=== PATIENT | female | born 1980 | race Caucasian/White ===

== ENCOUNTER 2021-11-25 20:18 | Observation (INO) | payer OTHER ==
[2021-11-25 20:52] LABS: Basophil (Absolute #) 0.02 (0-0.4); Eosinophil % 0.7 % (0.00-5.0); Hematocrit 47.7 % (35-47); Hemoglobin 15.7 gm/dl (12.0-16.0); Lymphocyte (Absolute #) 3.54 (1.0-4.6); Lymphocytes % 25.3 % (24.0-44.0); Mean Cell Volume 85.3 fl (78-100); Mean Corpuscular Hemoglobin 28.1 pg (26-32); Mean Corpuscular Hgb Concent. 32.9 g/dl (32-36); Mean Platelet Volume 10.3 fl (7.5-11.0); Monocyte (Absolute #) 0.93 (0.0-1.3); Monocytes % 6.6 % (0.0-12.0); Neutrophil % 67.3 % (36.0-66.0); Platelet Count 406 K/mm3 (150-450); Red Blood Count 5.59 M/mm3 (4.1-5.4); Red Cell Distribution Width 14.6 % (11.5-14.0)
[2021-11-25 21:11] LABS: ALBUMIN 4.6 g/dL (3.5-5.0); ALKALINE PHOSPHATASE 108 U/L (38-126); ANION GAP 15.2 MEQ/L (5-15); BLOOD UREA NITROGEN 12 mg/dL (7-17); CHLORIDE 98 mmol/L (98-107); CK-Creatinine Phosphokinase < 20 U/L (30-135); Calcium 9.5 mg/dL (8.4-10.2); Carbon Dioxide 29 mmol/L (22-30); Creatinine 1 0.79 mg/dL (0.52-1.04); EST GLOMERULAR FILTRATION RATE > 60.0 ML/MIN; Glucose 175 mg/dL (74-106); NT PRO BNP 48.1 pg/mL (0-450); SGOT/AST 30 U/L (14-36); SGPT/ALT 41 U/L (0-35); SODIUM 138 mmol/L (137-145); Total Protein 8.6 g/dL (6.3-8.2)
[2021-11-25 21:24] LABS: Appearance CLEAR (CLEAR)
[2021-11-25 21:26] LABS: Bilirubin NEGATIVE (NEGATIVE); Dipstick done @ ? MAIN LAB; Glucose NEGATIVE (NEGATIVE); Ketones NEGATIVE (NEGATIVE); Nitrite NEGATIVE (NEGATIVE); Protein,Urine Dip NEGATIVE (Negative); RBC NEGATIVE Ery/ul (0-5); Specific Gravity 1.015 (1.005-1.025); Urobilinogen 0.2 mg/dL (0-1)
[2021-11-25 21:31] LABS: Epithelial Cells RARE /HPF (FEW); Mucus SLIGHT /HPF (NEGATIVE)
[2021-11-25 21:32] LABS: Urine Cultured Indicated? YES
[2021-11-25 21:41] LABS: Amphetamine,Urine NEGATIVE (NEGATIVE); Barbiturate,Urine NEGATIVE (NEGATIVE); Benzodiazepine,Urine NEGATIVE (NEGATIVE); Cocaine,Urine NEGATIVE (NEGATIVE); Methadone,Urine NEGATIVE (NEGATIVE); Opiate,Urine NEGATIVE (NEGATIVE); PCP,Urine NEGATIVE (NEGATIVE); THC,Urine NEGATIVE (NEGATIVE)
--- NOTE | 2021-11-25 22:46 | ERPHSYRPT ---
- History of Present Illness Time Seen by Provider: 11/25/21 20:28 Source: patient, family Exam Limitations: no limitations Patient Subjective Stated Complaint: Patient states that she has been feeling "not right" all day today. She went to the [facility] today and states that the INVENTORY AUDITOR there indicated to her that she what she was expriencing was normal following her recent stroke. Patient states she had a stroke 2 weeks ago. She denies any pain at this time. States, "I feel tired and no myself. I get weak easily." Denies SOB or N/V. Triage Nursing Assessment: Patient ambulated back to ED with slow gait walking arm-in-arm with her . No SOB noted. She is alert and oriented and answering questions appopriately. B/P is elevated. Patient indicates she has not started a few of her new cardiac medications that Dr. Tejada prescribed the other day yet. Education provided to patient about the importance of taking medications as prescribed by her welder tack. Sinus Rythm noted on yard driver. Physician History: 41 years old female with history of hypertension, hyperlipidemia, diabetes mellitus, recent stroke 2 weeks ago with left-sided residual weakness in upper and lower extremity needing cane for ambulation, noncompliant with medications presented in the ER not feeling herself since morning. Patient reports "I feel off". Denies any chest pain palpitations or shortness of breath but weak all over. Denies any new/worsening weakness on the left side. No difficulty speech or visual symptoms. Patient has a blood pressure 200/116 on presentation without any headache, dizziness or lightheadedness. Timing/Duration: today, constant Severity: moderate Character of Deficits: general (difuse) Deficits: no difficulties Baseline/Normal Cognition: alert oriented x 3 Current Cognition: alert oriented x 3 Baseline Gait: uses cane Associated Symptoms: fatigue Allergies/Adverse Reactions: ciprofloxacin [From Cipro] Allergy (Mild, Verified 11/25/21 20:25) ciprofloxacin HCl [From Cipro] Allergy (Mild, Verified 11/25/21 20:25) duloxetine HCl [From Cymbalta] Allergy (Mild, Verified 11/25/21 20:25) topiramate [From Topamax] Allergy (Mild, Verified 11/25/21 20:25) aripiprazole [From Abilify] Allergy (Verified 11/25/21 20:25) sulfamethoxazole [From Bactrim] Allergy (Verified 11/25/21 23:01) trimethoprim [From Bactrim] Allergy (Verified 11/25/21 23:01) cephalexin monohydrate [From Keflex] Adverse Reaction (Verified 11/25/21 22:54) Home Medications: Aspirin 81 gm Chew [Baby Aspirin 81 mg Chew] 1 tab PO DAILY 11/25/21 [History] Atorvastatin Calcium 80 mg PO HS 11/25/21 [History] Clopidogrel Bisulfate 75 mg [PLAVIX 75 MG Tablet] 1 tab PO DAILY 11/25/21 [History] Famotidine 20 mg [Pepcid 20 MG] 1 tab PO BID 11/25/21 [History] Fluoxetine HCl 10 mg [Prozac 10 mg] 1 cap PO DAILY 11/25/21 [History] Losartan Potassium 50 mg [Cozaar 50 MG] 1 tab PO BID 11/25/21 [History] Omeprazole 40 mg PO DAILY 11/25/21 [History] dilTIAZem HCL [Diltiazem 24Hr ER (Xr)] 120 mg PO DAILY 11/25/21 [History] hydroCHLOROthiazide [Hydrochlorothiazide] 12.5 mg PO DAILY 11/25/21 [History] Hx Tetanus, Diphtheria Vaccination/Date Given: Yes Hx Influenza Vaccination/Date Given: No Hx Pneumococcal Vaccination/Date Given: No Immunizations Up to Date: Yes Travel Risk - International Travel Have you traveled outside of the country in past 3 weeks: No - Coronavirus Screening Are you exhibiting any of the following symptoms?: No Close contact with a COVID-19 positive Pt in past 14-21 Days: No - Vaccine Status Have you recieved a Covid-19 vaccination: No - Review of Systems Constitutional: Fatigue, Weakness Eyes: No Symptoms Ears, Nose, & Throat: No Symptoms Respiratory: No Symptoms Cardiac: No Symptoms Abdominal/Gastrointestinal: No Symptoms Genitourinary Symptoms: No Symptoms Musculoskeletal: No Symptoms Skin: No Symptoms Neurological: Other Psychological: Anxiety Endocrine: No Symptoms Hematologic/Lymphatic: No Symptoms Immunological/Allergic: No Symptoms - Past Medical History Pertinent Past Medical History: Yes Neurological History: Migraines, Stroke ENT History: No Pertinent History Cardiac History: Other Respiratory History: Asthma Endocrine Medical History: Diabetes Type II Musculoskeletal History: No Pertinent History GI Medical History: GERD History: No Pertinent History Psycho-Social History: Anxiety, Depression Female Reproductive Disorders: No Pertinent History Other Medical History: PATIENT STATES 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 STATES HAS SEEN A DOCTOR FOR KNEE AND BACK ISSUES BUT NO SURGERY. Stroke on 11/10/21 - Past Surgical History Past Surgical History: Yes Gastrointestinal: Cholecystectomy Genitourinary: Other Female Surgical History: Tubal Ligation Other Surgical History: KIDNEY STONE, Cyst removed from left ovary - Social History Smoking Status: Never smoker Exposure to second hand smoke: No Drug Use: none Patient Lives Alone: No - Female History Hx Last Menstrual Period: Spotted last month Hx Now: (unkn) - Nursing Vital Signs Nursing Vital Signs: Initial Vital Signs Temperature 98.5 F 11/25/21 20:30 Pulse Rate 97 H 11/25/21 20:30 Respiratory Rate 24 11/25/21 20:30 Blood Pressure 200/116 11/25/21 20:30 O2 Sat by Pulse Oximetry 98 11/25/21 20:30 Pain Scale Pain Intensity 0 - [place] Coma Scale Best Eye Response ([place]): (4) open spontaneously Best Verbal Response ([place]): (5) oriented Best Motor Response ([place]): (6) obeys commands [place] Total: 15 - Physical Exam General Appearance: no apparent distress, alert, anxiety Eye Exam: bilateral eye: normal inspection, PERRL, EOMI Ears, Nose, Throat Exam: normal ENT inspection, TMs normal, pharynx normal, moist mucous membranes Neck Exam: normal inspection, non-tender, full range of motion Respiratory: normal breath sounds, lungs clear Cardiovascular: regular rate/rhythm, normal heart sounds Gastrointestinal: soft, No tenderness Back Exam: normal inspection, normal range of motion Extremity Exam: normal inspection, normal range of motion Mental Status: alert, oriented x 3, cooperative oracle distribution consultant Exam: normal hearing, normal speech, PERRL Coordination/Gait: No normal finger to nose, No normal gait Motor/Sensory: weak motor strength LUE, weak motor strength LLE DTR: bicep (R): 2+, bicep (L): 2+, knee (R): 2+, knee (L): 2+ Skin Exam: normal color SpO2 Interpretation: normal SpO2: 97 O2 Delivery: Room Air - Course EKG Interpreted by Me: RATE (83), Sinus Rhythm, NORMAL AXIS, NORMAL INTERVALS, NORMAL QRS Ordered Tests: Medication Summary Discontinued Medications Generic Name Dose Route Start Last Admin Trade Name Kassi PRN Reason Stop Dose Admin Acetaminophen 650 mg 11/25/21 23:25 11/26/21 10:36 Acetaminophen 325 Mg Tablet PO 12/25/21 23:24 650 mg Q4H PRN PRN Administration PAIN AND/OR FEVER Albuterol/Ipratropium 3 ml 11/25/21 23:25 Ipratropium/Albuterol Sulfate 3 Ml Ampul.Neb IH 12/25/21 23:24 Q4HPRN PRN SHORTNESS OF BREATH/WHEEZING Aspirin 81 mg 11/26/21 10:00 11/26/21 10:38 Aspirin 81 Mg Tablet.Ec PO 12/26/21 09:59 81 mg DAILY AMBERLY Administration Clopidogrel Bisulfate 75 mg 11/26/21 10:00 11/26/21 10:38 Clopidogrel Bisulfate 75 Mg Tablet PO 12/26/21 09:59 75 mg DAILY AMBERLY Administration Diltiazem HCl 120 mg 11/26/21 10:00 11/26/21 10:38 Diltiazem Hcl 120 Mg Cap.Sr.24h PO 12/26/21 09:59 120 mg DAILY AMBERLY Administration Famotidine 20 mg 11/26/21 10:00 11/26/21 10:38 Famotidine 20 Mg Tablet PO 12/26/21 09:59 20 mg BID AMBERLY Administration Fluoxetine HCl 10 mg 11/26/21 10:00 Fluoxetine Hcl 10 Mg Tablet PO 12/26/21 09:59 DAILY AMBERLY Fluoxetine HCl 10 mg 11/26/21 22:00 Fluoxetine Hcl 10 Mg Tablet PO 12/26/21 21:59 HS AMBERLY Hydrochlorothiazide 12.5 mg 11/26/21 10:00 11/26/21 10:43 Hydrochlorothiazide 25 Mg Tablet PO 12/26/21 09:59 12.5 mg DAILY AMBERLY Administration Insulin Human Lispro 0 unit 11/25/21 23:25 11/26/21 11:23 Insulin Lispro 1 Unit SQ 12/25/21 23:24 2 unit UD PRN Administration HYPERGLYCEMIA Losartan Potassium 50 mg 11/26/21 01:00 11/26/21 08:18 Losartan Potassium 50 Mg Tablet PO 12/26/21 00:59 50 mg BID AMBERLY Administration Nitrofurantoin Macrocrystals 100 mg 11/25/21 23:02 11/25/21 23:09 Nitrofurantoin Macro 100 Mg Capsule PO 11/25/21 23:03 100 mg STAT ONE Administration Nitrofurantoin Macrocrystals Confirm 11/25/21 23:02 Nitrofurantoin Macro 100 Mg Capsule Administered 11/25/21 23:03 Dose 100 mg .ROUTE .STK-MED ONE Ondansetron HCl 4 mg 11/25/21 23:25 Ondansetron Hcl 4 Mg/2 Ml Vial IV 12/25/21 23:24 Q6H PRN PRN NAUSEA/VOMITING Pantoprazole Sodium 40 mg 11/26/21 10:00 11/26/21 10:40 Pantoprazole 40 Mg Vial IV 12/26/21 09:59 40 mg Q24H10 AMBERLY Administration Pantoprazole Sodium 40 mg 11/26/21 10:00 Protonix (Pantoprazole) 40 Mg Tablet PO 12/26/21 09:59 DAILY AMBERLY Pantoprazole Sodium 40 mg 11/26/21 15:00 Protonix (Pantoprazole) 40 Mg Tablet PO 12/26/21 14:59 1500 AMBERLY Simvastatin 40 mg 11/26/21 01:00 11/26/21 01:11 Simvastatin 20 Mg Tablet PO 12/26/21 00:59 40 mg HS AMBERLY Administration Lab/Rad Data: Laboratory Result Diagrams 11/25/21 20:40 11/25/21 20:40 Laboratory Results 11/25/21 11/25/21 11/25/21 Range/Units 22:30 21:10 21:10 WBC (4.0-10.5) K/mm3 RBC (4.1-5.4) M/mm3 Hgb (12.0-16.0) gm/dl Hct (35-47) % MCV (78-100) fl MCH (26-32) pg MCHC (32-36) g/dl RDW (11.5-14.0) % Plt Count (150-450) K/mm3 MPV (7.5-11.0) fl Gran % (36.0-66.0) % Eos # (Auto) (0-0.5) Absolute Lymphs (auto) (1.0-4.6) Absolute Monos (auto) (0.0-1.3) Lymphocytes % (24.0-44.0) % Monocytes % (0.0-12.0) % Eosinophils % (0.00-5.0) % Basophils % (0.0-0.4) % Absolute Granulocytes (1.4-6.9) Basophils # (0-0.4) Sodium (137-145) mmol/L Potassium (3.5-5.1) mmol/L Chloride (98-107) mmol/L Carbon Dioxide (22-30) mmol/L Anion Gap (5-15) MEQ/L BUN (7-17) mg/dL Creatinine (0.52-1.04) mg/dL Estimated GFR ML/MIN Glucose (74-106) mg/dL Calcium (8.4-10.2) mg/dL Magnesium (1.6-2.3) mg/dL Total Bilirubin (0.2-1.3) mg/dL AST (14-36) U/L ALT (0-35) U/L Alkaline Phosphatase (38-126) U/L Creatine Kinase (30-135) U/L Troponin I (0.000-0.034) ng/mL NT-Pro-B Natriuret Pep (0-450) pg/mL Serum Total Protein (6.3-8.2) g/dL Albumin (3.5-5.0) g/dL Urinalys Dipstick Clnc Urine Color (YELLOW) Urine Appearance (CLEAR) Urine pH (5-6) Ur Specific P[place] (1.005-1.025) POC Urine Protein Conf (Negative) Urine Ketones (NEGATIVE) Urine Nitrite (NEGATIVE) Urine Bilirubin (NEGATIVE) Urine Urobilinogen (0-1) mg/dL Urine Leukocytes (NEGATIVE) Urine WBC (Auto) (0-5) /HPF Urine RBC (Auto) (0-2) /HPF U Epithel Cells (Auto) (FEW) /HPF Urine Bacteria (Auto) (NEGATIVE) /HPF Urine RBC (0-5) Jefe/ul Urine Mucus (Auto) (NEGATIVE) /HPF Ur Culture Indicated? Urine Glucose (NEGATIVE) mg/dL Urine HCG, Qual NEGATIVE (Negative) Urine Opiates Level NEGATIVE (NEGATIVE) Ur Methadone NEGATIVE (NEGATIVE) Urine Barbiturates NEGATIVE (NEGATIVE) Ur Phencyclidine (PCP) NEGATIVE (NEGATIVE) Urine Amphetamine NEGATIVE (NEGATIVE) U Benzodiazepine Level NEGATIVE (NEGATIVE) Urine Cocaine NEGATIVE (NEGATIVE) Urine Marijuana (THC) NEGATIVE (NEGATIVE) Influenza Type A Ag NEGATIVE (NEGATIVE) Influenza Type B Ag NEGATIVE (NEGATIVE) RSV (PCR) NEGATIVE (Negative) SARS-CoV-2 (PCR) NEGATIVE (NEGATIVE) 11/25/21 11/25/21 11/25/21 Range/Units 21:10 20:40 20:40 WBC (4.0-10.5) K/mm3 RBC (4.1-5.4) M/mm3 Hgb (12.0-16.0) gm/dl Hct (35-47) % MCV (78-100) fl MCH (26-32) pg MCHC (32-36) g/dl RDW (11.5-14.0) % Plt Count (150-450) K/mm3 MPV (7.5-11.0) fl Gran % (36.0-66.0) % Eos # (Auto) (0-0.5) Absolute Lymphs (auto) (1.0-4.6) Absolute Monos (auto) (0.0-1.3) Lymphocytes % (24.0-44.0) % Monocytes % (0.0-12.0) % Eosinophils % (0.00-5.0) % Basophils % (0.0-0.4) % Absolute Granulocytes (1.4-6.9) Basophils # (0-0.4) Sodium (137-145) mmol/L Potassium (3.5-5.1) mmol/L Chloride (98-107) mmol/L Carbon Dioxide (22-30) mmol/L Anion Gap (5-15) MEQ/L BUN (7-17) mg/dL Creatinine (0.52-1.04) mg/dL Estimated GFR ML/MIN Glucose (74-106) mg/dL Calcium (8.4-10.2) mg/dL Magnesium 2.0 (1.6-2.3) mg/dL Total Bilirubin (0.2-1.3) mg/dL AST (14-36) U/L ALT (0-35) U/L Alkaline Phosphatase (38-126) U/L Creatine Kinase (30-135) U/L Troponin I < 0.012 (0.000-0.034) ng/mL NT-Pro-B Natriuret Pep (0-450) pg/mL Serum Total Protein (6.3-8.2) g/dL Albumin (3.5-5.0) g/dL Urinalys Dipstick Clnc MAIN LAB Urine Color LT.YELLOW (YELLOW) Urine Appearance CLEAR (CLEAR) Urine pH 7.0 (5-6) Ur Specific [place] 1.015 (1.005-1.025) POC Urine Protein Conf NEGATIVE (Negative) Urine Ketones NEGATIVE (NEGATIVE) Urine Nitrite NEGATIVE (NEGATIVE) Urine Bilirubin NEGATIVE (NEGATIVE) Urine Urobilinogen 0.2 (0-1) mg/dL Urine Leukocytes SMALL (NEGATIVE) Urine WBC (Auto) 6-10 (0-5) /HPF Urine RBC (Auto) NONE (0-2) /HPF U Epithel Cells (Auto) RARE (FEW) /HPF Urine Bacteria (Auto) NONE (NEGATIVE) /HPF Urine RBC NEGATIVE (0-5) Jefe/ul Urine Mucus (Auto) SLIGHT (NEGATIVE) /HPF Ur Culture Indicated? YES Urine Glucose NEGATIVE (NEGATIVE) mg/dL Urine HCG, Qual (Negative) Urine Opiates Level (NEGATIVE) Ur Methadone (NEGATIVE) Urine Barbiturates (NEGATIVE) Ur Phencyclidine (PCP) (NEGATIVE) Urine Amphetamine (NEGATIVE) U Benzodiazepine Level (NEGATIVE) Urine Cocaine (NEGATIVE) Urine Marijuana (THC) (NEGATIVE) Influenza Type A Ag (NEGATIVE) Influenza Type B Ag (NEGATIVE) RSV (PCR) (Negative) SARS-CoV-2 (PCR) (NEGATIVE) 11/25/21 11/25/21 Range/Units 20:40 20:40 WBC 14.0 H (4.0-10.5) K/mm3 RBC 5.59 H (4.1-5.4) M/mm3 Hgb 15.7 (12.0-16.0) gm/dl Hct 47.7 H (35-47) % MCV 85.3 (78-100) fl MCH 28.1 (26-32) pg MCHC 32.9 (32-36) g/dl RDW 14.6 H (11.5-14.0) % Plt Count 406 (150-450) K/mm3 MPV 10.3 (7.5-11.0) fl Gran % 67.3 H (36.0-66.0) % Eos # (Auto) 0.10 (0-0.5) Absolute Lymphs (auto) 3.54 (1.0-4.6) Absolute Monos (auto) 0.93 (0.0-1.3) Lymphocytes % 25.3 (24.0-44.0) % Monocytes % 6.6 (0.0-12.0) % Eosinophils % 0.7 (0.00-5.0) % Basophils % 0.1 (0.0-0.4) % Absolute Granulocytes 9.40 H (1.4-6.9) Basophils # 0.02 (0-0.4) Sodium 138 (137-145) mmol/L Potassium 4.0 (3.5-5.1) mmol/L Chloride 98 (98-107) mmol/L Carbon Dioxide 29 (22-30) mmol/L Anion Gap 15.2 H (5-15) MEQ/L BUN 12 (7-17) mg/dL Creatinine 0.79 (0.52-1.04) mg/dL Estimated GFR > 60.0 ML/MIN Glucose 175 H (74-106) mg/dL Calcium 9.5 (8.4-10.2) mg/dL Magnesium (1.6-2.3) mg/dL Total Bilirubin 0.50 (0.2-1.3) mg/dL AST 30 (14-36) U/L ALT 41 H (0-35) U/L Alkaline Phosphatase 108 (38-126) U/L Creatine Kinase < 20 L (30-135) U/L Troponin I (0.000-0.034) ng/mL NT-Pro-B Natriuret Pep 48.1 (0-450) pg/mL Serum Total Protein 8.6 H (6.3-8.2) g/dL Albumin 4.6 (3.5-5.0) g/dL Urinalys Dipstick Clnc Urine Color (YELLOW) Urine Appearance (CLEAR) Urine pH (5-6) Ur Specific [place] (1.005-1.025) POC Urine Protein Conf (Negative) Urine Ketones (NEGATIVE) Urine Nitrite (NEGATIVE) Urine Bilirubin (NEGATIVE) Urine Urobilinogen (0-1) mg/dL Urine Leukocytes (NEGATIVE) Urine WBC (Auto) (0-5) /HPF Urine RBC (Auto) (0-2) /HPF U Epithel Cells (Auto) (FEW) /HPF Urine Bacteria (Auto) (NEGATIVE) /HPF Urine RBC (0-5) Jefe/ul Urine Mucus (Auto) (NEGATIVE) /HPF Ur Culture Indicated? Urine Glucose (NEGATIVE) mg/dL Urine HCG, Qual (Negative) Urine Opiates Level (NEGATIVE) Ur Methadone (NEGATIVE) Urine Barbiturates (NEGATIVE) Ur Phencyclidine (PCP) (NEGATIVE) Urine Amphetamine (NEGATIVE) U Benzodiazepine Level (NEGATIVE) Urine Cocaine (NEGATIVE) Urine Marijuana (THC) (NEGATIVE) Influenza Type A Ag (NEGATIVE) Influenza Type B Ag (NEGATIVE) RSV (PCR) (Negative) SARS-CoV-2 (PCR) (NEGATIVE) - Progress Progress: re-examined Progress Note: 11/25/21 89 years old with multiple comorbidities including recent stroke is evaluated for not feeling well. Patient was hypertensive on presentation, improved later on to 158/[address] head is negative for any acute neurological event. Has a white count of 14, grossly unremarkable chemistry for acute changes and does have some UTI. Obtain SOC neurology consult, rec commended observation and MRI in the morning as patient is at high risk for another stroke but seems like it is more likely of hypertension related. Discussed with Dr. Newberry and patient is excepted for admission. Discussed with .: Yuliana, Other Will see patient in: hospital (observation) Counseled pt/family regarding: drug and/or alcohol abuse, lab results, diagnosis, rad results - Departure Departure Disposition: Observation Clinical Impression: Hypertensive urgency, Stroke-like symptom Condition: Stable Critical Care Time: No
[2021-11-25] MEDS ORDERED: Macrobid 100MG Capsule ONE (23:02)
[2021-11-25] MEDS ORDERED: Macrobid 100MG Capsule PO ONE (23:02)
[2021-11-25 23:09] LABS: INFLUENZA A NEGATIVE (NEGATIVE); INFLUENZA B NEGATIVE (NEGATIVE); RESPIRATORY SYNCTIAL VIRUS NEGATIVE (Negative); SARS-CoV-2 Xpert Express NEGATIVE (NEGATIVE)
[2021-11-25] MEDS ORDERED: TYLENOL 325 MG PO PRN (23:25)
[2021-11-25] MEDS ORDERED: Zofran 4 MG/2 ML VIAL IV PRN (23:25)
[2021-11-25] MEDS ORDERED: HUMALOG SQ PRN (23:25)
[2021-11-25] MEDS ORDERED: DUONEB 0.5-3 MG/3 ml Neb IH PRN (23:25)
[2021-11-26] MEDS ORDERED: ZOCOR 20MG PO SCH (01:00)
[2021-11-26] MEDS: Cozaar 50 MG PO SCH ×2 (01:11→08:18)
[2021-11-26] MEDS: Pepcid 20 MG PO SCH ×2 (01:11→10:38)
[2021-11-26 05:29] LABS: Basophil (Absolute #) 0.03 (0-0.4); Eosinophil % 0.9 % (0.00-5.0); Eosinophil (Absolute #) 0.11 (0-0.5); Hematocrit 42.9 % (35-47); Lymphocyte (Absolute #) 3.36 (1.0-4.6); Lymphocytes % 26.8 % (24.0-44.0); Mean Cell Volume 86.3 fl (78-100); Mean Corpuscular Hemoglobin 28.2 pg (26-32); Mean Corpuscular Hgb Concent. 32.6 g/dl (32-36); Mean Platelet Volume 10.6 fl (7.5-11.0); Monocyte (Absolute #) 0.76 (0.0-1.3); Monocytes % 6.1 % (0.0-12.0); Platelet Count 353 K/mm3 (150-450); Red Blood Count 4.97 M/mm3 (4.1-5.4); Red Cell Distribution Width 14.4 % (11.5-14.0); White Blood Count 12.6 K/mm3 (4.0-10.5)
[2021-11-26 05:40] LABS: ALBUMIN 3.7 g/dL (3.5-5.0); ALKALINE PHOSPHATASE 90 U/L (38-126); ANION GAP 11.9 MEQ/L (5-15); BLOOD UREA NITROGEN 10 mg/dL (7-17); CHLORIDE 101 mmol/L (98-107); Calcium 9.1 mg/dL (8.4-10.2); Carbon Dioxide 28 mmol/L (22-30); Creatinine 1 0.56 mg/dL (0.52-1.04); EST GLOMERULAR FILTRATION RATE > 60.0 ML/MIN; Glucose 181 mg/dL (74-106); Potassium 4.2 mmol/L (3.5-5.1); SGOT/AST 26 U/L (14-36); SGPT/ALT 33 U/L (0-35); SODIUM 137 mmol/L (137-145); Total Protein 6.8 g/dL (6.3-8.2)
--- NOTE | 2021-11-26 08:32 | SSS ---
DISCHARGE DIAGNOSIS: PARTIAL HEMIPLEGIA. CHIEF COMPLAINT: History of recent CVA affecting the left leg and partially the arm and just not feeling right. HISTORY OF PRESENT ILLNESS: The patient is a 41-year-old white female who had been at [facility] approximately two weeks ago. She sees Dr. Siddiqui for neurology and she had been placed on aspirin and Plavix. She apparently did have a small ischemic CVA affecting her as stated above. The patient reports that she was just not feeling right. She went to the [facility] earlier in the day of 11/25/2021. They reported that there was nothing new going on and they did not change the therapy. The patient continued to complain and she was brought back to the emergency room by her . She had a tele-neurology evaluation in the emergency room and subsequently admitted to the hospital for evaluation to include repeat MRI. PAST MEDICAL/SURGICAL HISTORY: Otherwise significant for hypertension, hyperlipidemia and diabetes mellitus type II. She has anxiety problems and depression. HOME MEDICATIONS: Aspirin 81 mg a day, atorvastatin 1 tablet at night, Plavix 75 mg a day, Prozac 10 mg a day, Cozaar 50 mg a day, omeprazole 1 tablet a day, diltiazem extended release capsule and hydrochlorothiazide. ALLERGIES: CIPRO. CYMBALTA. TOPAMAX. ABILIFY. KEFLEX. PHYSICAL EXAMINATION: The patient's vital signs on admission showed her temperature to be 98.5F, pulse 97, respiratory rate 24 and blood pressure 200/116. O2 saturation 98% on room air. HEENT: Normocephalic, atraumatic. Pupils equal round reactive to light. Extraocular movements intact. Oropharynx is pink and moist. NECK: Supple without lymphadenopathy, thyromegaly or JVD. CHEST: Clear to auscultation with good air movement bilaterally. HEART: Regular rate and rhythm without murmurs, rubs or gallops. ABDOMEN: Soft. No palpable masses. EXTREMITIES: Without cyanosis, clubbing or edema. NEUROLOGIC: The patient reports weakness in the left upper extremity which I was not able to differentiate. She does have some slight weakness in the left lower extremity although she is able to ambulate. She uses a cane for balance issues. LAB DATA AND TESTS: CBC showed white blood cell count to be slightly elevated at 12.6, hemoglobin 14.0, PLT count 353,000. Her metabolic panel showed her sugar nonfasting 181 and was otherwise entirely normal. She had a magnesium level 2.0, troponin less than 0.012. The patient otherwise had total protein slightly elevated at 8.6, SGPT slightly elevated at 41, CPK less than 20, ProBNP was normal. Her influenza, respiratory syncytial virus and COVID swabs were negative. Her urine drug screen was negative. HCG was negative. UA showed 6-10 white blood cells per high power field but otherwise normal. Her CT scan continued to be normal compared to one performed on 01/01/2016. ASSESSMENT: The patient was admitted to the medicine [facility]. By the morning she was feeling back to herself in regards to how she felt post-stroke two weeks with some improvement in the left upper extremity weakness but continued left lower extremity weakness but again she is able to ambulate with just a cane for balance. The patient was receiving MRI this morning without contrast compared to the previous. She will be continued on aspirin and Plavix and at this point is felt to be ready for discharge back home again to follow up with Jennifer Bergeron her primary care provider and Dr. Siddiqui her neurologist.
--- NOTE | 2021-11-26 08:43 | XRAY ---
Indication: Weakness. Current blood thinner therapy. Multiple contiguous axial images obtained through the head without contrast. Comparison: January 01, 2016. Normal appearing brain parenchyma, ventricles, and bony calvarium for patient's age. Paranasal sinuses and mastoid air cells are clear. Impression: Continued normal CT head without contrast exam.
--- NOTE | 2021-11-26 08:49 | XRAY ---
Indication: Weakness. Comparison: May 15, 2017. Portable apical lordotic chest now demonstrates borderline cardiomegaly, probably projectional. Lungs inflated and now clear. Bony thorax intact. No new/acute findings.
[2021-11-26] MEDS ORDERED: PLAVIX 75 MG Tablet PO SCH (10:00)
[2021-11-26] MEDS ORDERED: PROTONIX 40 MG IV IV SCH (10:00)
[2021-11-26] MEDS ORDERED: Protonix 40MG Tablet PO SCH ×2 (10:00→15:00)
[2021-11-26] MEDS ORDERED: NON-FORMULARY ITEM (Omeprazole [Omeprazole] 40 MG Capsule.Dr) PO SCH (10:00)
[2021-11-26] MEDS ORDERED: hydroDIURIL 25 MG PO SCH (10:00)
[2021-11-26] MEDS ORDERED: ECOTRIN 81 MG PO SCH (10:00)
[2021-11-26] MEDS ORDERED: BABY ASPIRIN 81 MG CHEW PO SCH (10:00)
[2021-11-26] MEDS ORDERED: NON-FORMULARY ITEM (Hydrochlorothiazide [Hydrochlorothiazide] 12.5 MG Tablet) PO SCH (10:00)
[2021-11-26] MEDS ORDERED: PROZAC 10 MG PO SCH ×2 (10:00→22:00)
[2021-11-26] MEDS ORDERED: Cardizem CD 120 MG PO SCH (10:00)
[2021-11-26] MEDS ORDERED: DILTIAZEM HCL 120 MG PO SCH (10:00)
--- NOTE | 2021-11-26 10:51 | XRAY ---
Indication: Left arm numbness. Ill feeling. Stroke. Sagittal, coronal, and axial MRI brain performed using pre-and post T1, T2, FLAIR, diffusion, and ADC sequences. 20 cc Dotarem contrast used. Comparison: None Ventriculosulcal pattern appears symmetric. There is 6 x 12 mm focus of restricted signal lateral to right thalamus favoring ischemia. No acute intracranial hemorrhage, abnormal extra-axial fluid collection, or mass effect. Following gadolinium, there is no abnormal enhancing intra-or extra-axial mass. Fourth ventricle is midline without hydrocephalus. 7/8 cranial nerve complex bilaterally symmetric. Normal flow void signal within the major intracerebral circulation. Normal appearing craniocervical junction and sella turcica. Paranasal sinuses are clear. Impression: 1. 6 x 12 mm focus acute ischemia lateral to right thalamus. No acute hemorrhage or mass effect. 2. Remaining MRI brain with contrast exam is negative.
[2021-11-26 12:11] VITALS: BP 182/77; PULSE 97
[2021-11-27 22:19] VITALS: O2SAT 97
== END 2021-11-26 15:16 | disposition home or self-care (01) ==
LOC: ED 20:18 → MED SURG 23:24
PROVIDERS: ADMIT Family Medicine; ATTEND Family Medicine
DX: I69.954 Hemiplegia and hemiparesis following unspecified cerebrovascular disease affecting left non-dominant side (principal); G93.40 Encephalopathy, unspecified; I10 Essential (primary) hypertension; E78.5 Hyperlipidemia, unspecified; E11.9 Type 2 diabetes mellitus without complications; F41.9 Anxiety disorder, unspecified; N39.0 Urinary tract infection, site not specified; R79.89 Other specified abnormal findings of blood chemistry; R53.1 Weakness; Z79.01 Long term (current) use of anticoagulants; Z79.899 Other long term (current) drug therapy
CPT/HCPCS: 0241U; 36000; 36415; 70450; 70553; 71045; 80053; 80307; 81015; 82550; 82947; 83735; 83880; 84484; 84703; 85025; 87086; 93005; 93041; 93268; 99285; G0378; J1817; A9270-GY

== ENCOUNTER 2021-12-18 18:05 | Emergency (ER) | payer OTHER ==
[2021-12-18] MEDS ORDERED: BABY ASPIRIN 81 MG CHEW PO ONE (18:21)
[2021-12-18 18:37] LABS: Absolute Neutrophil Ct (ANC) 6.75 (1.4-6.9); Basophil (Absolute #) 0.02 (0-0.4); Eosinophil % 1.7 % (0.00-5.0); Eosinophil (Absolute #) 0.18 (0-0.5); Hematocrit 47.6 % (35-47); Hemoglobin 15.6 gm/dl (12.0-16.0); Lymphocyte (Absolute #) 2.56 (1.0-4.6); Lymphocytes % 24.8 % (24.0-44.0); Mean Cell Volume 86.4 fl (78-100); Mean Corpuscular Hemoglobin 28.3 pg (26-32); Mean Corpuscular Hgb Concent. 32.8 g/dl (32-36); Mean Platelet Volume 10.6 fl (7.5-11.0); Monocytes % 7.8 % (0.0-12.0); Neutrophil % 65.5 % (36.0-66.0); Platelet Count 317 K/mm3 (150-450); Red Blood Count 5.51 M/mm3 (4.1-5.4); Red Cell Distribution Width 15.1 % (11.5-14.0); White Blood Count 10.3 K/mm3 (4.0-10.5)
[2021-12-18 19:04] LABS: ALBUMIN 4.6 g/dL (3.5-5.0); ALKALINE PHOSPHATASE 110 U/L (38-126); ANION GAP 16.8 MEQ/L (5-15); BLOOD UREA NITROGEN 12 mg/dL (7-17); CHLORIDE 99 mmol/L (98-107); Calcium 9.8 mg/dL (8.4-10.2); Carbon Dioxide 26 mmol/L (22-30); Creatinine 1 0.84 mg/dL (0.52-1.04); EST GLOMERULAR FILTRATION RATE > 60.0 ML/MIN; Glucose 180 mg/dL (74-106); NT PRO BNP 33.1 pg/mL (0-450); SGOT/AST 31 U/L (14-36); SGPT/ALT 34 U/L (0-35); SODIUM 138 mmol/L (137-145); Total Protein 8.2 g/dL (6.3-8.2)
[2021-12-18 21:05] VITALS: BP 154/101; PULSE 117; O2SAT 98
--- NOTE | 2021-12-18 21:12 | XRAY ---
Indication: Short of breath. Chest tightness. Comparison: November 25, 2021. Portable chest demonstrates normal heart, lungs, and bony thorax.
--- NOTE | 2021-12-18 21:27 | ERPHSYRPT ---
- History of Present Illness Time Seen by Provider: 12/18/21 18:09 Historian: patient Exam Limitations: no limitations Patient Subjective Stated Complaint: pt here for chest pressure,fast heart rate,and dizziness today Triage Nursing Assessment: pt alert, anxious, resp easy, face mask applied, skin w/d/p. and soft Physician History: 41 years old female with a history of hypertension, hyperlipidemia, diabetes mellitus, CVA presented to the ER with intermittent chest pain since noon time, each time lasting for few seconds to minutes, dull aching pressure with some palpitation and feeling dizzy/lightheaded and improves on its own. Currently patient is chest pain-free. No fever or chills reported. Timing/Duration: today, intermittent, improved Activities at Onset: rest Quality: fullness Location: substernal Chest Pain Radiation: no radiation Severity of Pain-Max: moderate Severity of Pain-Current: none Modifying Factors: Improves With: nothing Associated Symptoms: dizziness Prior Chest Pain/Cardiac Workup: no prior cardiac workup Nitro Today/Relief: no nitro taken today Aspirin Treatment Today: no aspirin today Allergies/Adverse Reactions: ciprofloxacin [From Cipro] Allergy (Mild, Verified 12/18/21 18:08) ciprofloxacin HCl [From Cipro] Allergy (Mild, Verified 12/18/21 18:08) duloxetine HCl [From Cymbalta] Allergy (Mild, Verified 12/18/21 18:08) topiramate [From Topamax] Allergy (Mild, Verified 12/18/21 18:08) aripiprazole [From Abilify] Allergy (Verified 12/18/21 18:08) sulfamethoxazole [From Bactrim] Allergy (Verified 12/18/21 18:08) trimethoprim [From Bactrim] Allergy (Verified 12/18/21 18:08) cephalexin monohydrate [From Keflex] Adverse Reaction (Verified 12/18/21 18:08) Home Medications: Atorvastatin Calcium 80 mg PO HS 11/25/21 [History] Clopidogrel Bisulfate 75 mg [PLAVIX 75 MG Tablet] 1 tab PO DAILY 11/25/21 [History] Famotidine 20 mg [Pepcid 20 MG] 1 tab PO BID 11/25/21 [History] Fluoxetine HCl 10 mg [Prozac 10 mg] 1 cap PO DAILY 11/25/21 [History] Losartan Potassium 50 mg [Cozaar 50 MG] 1 tab PO BID 11/25/21 [History] dilTIAZem HCL [Diltiazem 24Hr ER (Xr)] 120 mg PO DAILY 11/25/21 [History] hydroCHLOROthiazide [Hydrochlorothiazide] 12.5 mg PO DAILY 11/25/21 [History] Hx Tetanus, Diphtheria Vaccination/Date Given: No Hx Influenza Vaccination/Date Given: No Hx Pneumococcal Vaccination/Date Given: No Immunizations Up to Date: Yes Travel Risk - International Travel Have you traveled outside of the country in past 3 weeks: No - Coronavirus Screening Are you exhibiting any of the following symptoms?: No Close contact with a COVID-19 positive Pt in past 14-21 Days: No - Vaccine Status Have you recieved a Covid-19 vaccination: No - Review of Systems Constitutional: No Symptoms Eyes: No Symptoms Ears, Nose, & Throat: No Symptoms Respiratory: No Symptoms Cardiac: Chest Pain, Palpitations Abdominal/Gastrointestinal: No Symptoms Genitourinary Symptoms: No Symptoms Musculoskeletal: No Symptoms Skin: No Symptoms Neurological: Dizziness Psychological: No Symptoms Endocrine: No Symptoms Hematologic/Lymphatic: No Symptoms Immunological/Allergic: No Symptoms - Past Medical History Pertinent Past Medical History: Yes Neurological History: Migraines, Stroke ENT History: No Pertinent History Cardiac History: Other Respiratory History: Asthma Endocrine Medical History: Diabetes Type II Musculoskeletal History: No Pertinent History GI Medical History: GERD History: No Pertinent History Psycho-Social History: Anxiety, Depression Female Reproductive Disorders: No Pertinent History Other Medical History: PATIENT STATES 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 STATES HAS SEEN A DOCTOR FOR KNEE AND BACK ISSUES BUT NO SURGERY. Stroke on 11/10/21 - Past Surgical History Past Surgical History: Yes Neuro Surgical History: No Pertinent History Cardiac: Angioplasty Gastrointestinal: Cholecystectomy Genitourinary: Other Female Surgical History: Tubal Ligation Other Surgical History: KIDNEY STONE, Cyst removed from left ovary - Social History Smoking Status: Never smoker Exposure to second hand smoke: No Drug Use: none Patient Lives Alone: No - Female History Hx Last Menstrual Period: now Hx Now: (unkn) - Nursing Vital Signs Nursing Vital Signs: Initial Vital Signs Temperature 98.8 F 12/18/21 18:06 Pulse Rate 120 H 12/18/21 18:06 Respiratory Rate 24 12/18/21 18:06 Blood Pressure 183/103 12/18/21 18:06 O2 Sat by Pulse Oximetry 99 12/18/21 18:06 Pain Scale Pain Intensity 0 - Physical Exam General Appearance: no apparent distress, alert, anxiety Eye Exam: PERRL/EOMI, eyes nml inspection Ears, Nose, Throat Exam: normal ENT inspection, TMs normal, pharynx normal, moist mucous membranes Neck Exam: normal inspection, non-tender, supple, full range of motion Respiratory Exam: normal breath sounds, lungs clear Cardiovascular Exam: normal heart sounds, tachycardia Gastrointestinal/Abdomen Exam: soft, No tenderness Back Exam: normal inspection, normal range of motion Skin Exam: normal color, warm SpO2 Interpretation: normal SpO2: 98 O2 Delivery: Room Air - Course EKG Interpreted by Me: RATE ([id number]), Sinus Tach, NORMAL AXIS, NORMAL INTERVALS, NORMAL QRS Ordered Tests: Active Orders 24 hr Category Date Time 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 12/18/21 18:22 Active EKG-ER Only STAT Care 12/18/21 18:21 Active IV Insertion STAT Care 12/18/21 18:21 Active CHEST 1 VIEW (PORTABLE) Stat Exams 12/18/21 18:21 Completed CBC W DIFF Stat Lab 12/18/21 18:34 Completed CMP Stat Lab 12/18/21 18:34 Completed D-DIMER QUANTITATIVE Stat Lab 12/18/21 19:00 Completed HCG,QUALITATIVE URINE Stat Lab 12/18/21 18:35 Completed NT PRO BNP Stat Lab 12/18/21 18:34 Completed POCT GLUCOSE Stat Lab 12/18/21 21:02 Completed TROPONIN Q3H Lab 12/18/21 18:34 Completed TROPONIN Q3H Lab 12/18/21 21:03 Completed TROPONIN Q3H Lab 12/19/21 00:30 Ordered TROPONIN Q3H Lab 12/19/21 03:30 Ordered TROPONIN Q3H Lab 12/19/21 06:30 Ordered Medication Summary Discontinued Medications Generic Name Dose Route Start Last Admin Trade Name Freq PRN Reason Stop Dose Admin Aspirin 324 mg 12/18/21 18:21 12/18/21 18:28 Aspirin 81 Mg Tab.Chew PO 12/18/21 18:22 324 mg STAT ONE Administration Lab/Rad Data: Laboratory Result Diagrams 12/18/21 18:34 12/18/21 18:34 Laboratory Results 12/18/21 12/18/21 12/18/21 Range/Units 21:03 21:02 19:00 WBC (4.0-10.5) K/mm3 RBC (4.1-5.4) M/mm3 Hgb (12.0-16.0) gm/dl Hct (35-47) % MCV (78-100) fl MCH (26-32) pg MCHC (32-36) g/dl RDW (11.5-14.0) % Plt Count (150-450) K/mm3 MPV (7.5-11.0) fl Gran % (36.0-66.0) % Eos # (Auto) (0-0.5) Absolute Lymphs (auto) (1.0-4.6) Absolute Monos (auto) (0.0-1.3) Lymphocytes % (24.0-44.0) % Monocytes % (0.0-12.0) % Eosinophils % (0.00-5.0) % Basophils % (0.0-0.4) % Absolute Granulocytes (1.4-6.9) Basophils # (0-0.4) D-Dimer 428 (215-500) ng/mL Sodium (137-145) mmol/L Potassium (3.5-5.1) mmol/L Chloride (98-107) mmol/L Carbon Dioxide (22-30) mmol/L Anion Gap (5-15) MEQ/L BUN (7-17) mg/dL Creatinine (0.52-1.04) mg/dL Estimated GFR ML/MIN Glucose (74-106) mg/dL POC Glucometer 189 H (74 to 106) mg/dL Calcium (8.4-10.2) mg/dL Total Bilirubin (0.2-1.3) mg/dL AST (14-36) U/L ALT (0-35) U/L Alkaline Phosphatase (38-126) U/L Troponin I < 0.012 (0.000-0.034) ng/mL NT-Pro-B Natriuret Pep (0-450) pg/mL Serum Total Protein (6.3-8.2) g/dL Albumin (3.5-5.0) g/dL Urine HCG, Qual (Negative) 12/18/21 12/18/21 12/18/21 Range/Units 18:35 18:34 18:34 WBC (4.0-10.5) K/mm3 RBC (4.1-5.4) M/mm3 Hgb (12.0-16.0) gm/dl Hct (35-47) % MCV (78-100) fl MCH (26-32) pg MCHC (32-36) g/dl RDW (11.5-14.0) % Plt Count (150-450) K/mm3 MPV (7.5-11.0) fl Gran % (36.0-66.0) % Eos # (Auto) (0-0.5) Absolute Lymphs (auto) (1.0-4.6) Absolute Monos (auto) (0.0-1.3) Lymphocytes % (24.0-44.0) % Monocytes % (0.0-12.0) % Eosinophils % (0.00-5.0) % Basophils % (0.0-0.4) % Absolute Granulocytes (1.4-6.9) Basophils # (0-0.4) D-Dimer (215-500) ng/mL Sodium 138 (137-145) mmol/L Potassium 4.0 (3.5-5.1) mmol/L Chloride 99 (98-107) mmol/L Carbon Dioxide 26 (22-30) mmol/L Anion Gap 16.8 H (5-15) MEQ/L BUN 12 (7-17) mg/dL Creatinine 0.84 (0.52-1.04) mg/dL Estimated GFR > 60.0 ML/MIN Glucose 180 H (74-106) mg/dL POC Glucometer (74 to 106) mg/dL Calcium 9.8 (8.4-10.2) mg/dL Total Bilirubin 0.50 (0.2-1.3) mg/dL AST 31 (14-36) U/L ALT 34 (0-35) U/L Alkaline Phosphatase 110 (38-126) U/L Troponin I < 0.012 (0.000-0.034) ng/mL NT-Pro-B Natriuret Pep 33.1 (0-450) pg/mL Serum Total Protein 8.2 (6.3-8.2) g/dL Albumin 4.6 (3.5-5.0) g/dL Urine HCG, Qual NEGATIVE (Negative) 12/18/21 Range/Units 18:34 WBC 10.3 (4.0-10.5) K/mm3 RBC 5.51 H (4.1-5.4) M/mm3 Hgb 15.6 (12.0-16.0) gm/dl Hct 47.6 H (35-47) % MCV 86.4 (78-100) fl MCH 28.3 (26-32) pg MCHC 32.8 (32-36) g/dl RDW 15.1 H (11.5-14.0) % Plt Count 317 (150-450) K/mm3 MPV 10.6 (7.5-11.0) fl Gran % 65.5 (36.0-66.0) % Eos # (Auto) 0.18 (0-0.5) Absolute Lymphs (auto) 2.56 (1.0-4.6) Absolute Monos (auto) 0.80 (0.0-1.3) Lymphocytes % 24.8 (24.0-44.0) % Monocytes % 7.8 (0.0-12.0) % Eosinophils % 1.7 (0.00-5.0) % Basophils % 0.2 (0.0-0.4) % Absolute Granulocytes 6.75 (1.4-6.9) Basophils # 0.02 (0-0.4) D-Dimer (215-500) ng/mL Sodium (137-145) mmol/L Potassium (3.5-5.1) mmol/L Chloride (98-107) mmol/L Carbon Dioxide (22-30) mmol/L Anion Gap (5-15) MEQ/L BUN (7-17) mg/dL Creatinine (0.52-1.04) mg/dL Estimated GFR ML/MIN Glucose (74-106) mg/dL POC Glucometer (74 to 106) mg/dL Calcium (8.4-10.2) mg/dL Total Bilirubin (0.2-1.3) mg/dL AST (14-36) U/L ALT (0-35) U/L Alkaline Phosphatase (38-126) U/L Troponin I (0.000-0.034) ng/mL NT-Pro-B Natriuret Pep (0-450) pg/mL Serum Total Protein (6.3-8.2) g/dL Albumin (3.5-5.0) g/dL Urine HCG, Qual (Negative) - Progress Progress: improved Air Movement: good Progress Note: 12/18/21 21:48 41 years old is evaluated for chest pain intermittently. Rules out ACS, PE, pneumonia, pneumothorax. Remained asymptomatic. Recommended outpatient follow- up. Blood Culture(s) Obtained: No Antibiotics given: No Counseled pt/family regarding: lab results, diagnosis, need for follow-up, rad results - Departure Departure Disposition: Home Clinical Impression: Atypical chest pain Condition: Stable Critical Care Time: No Referrals: CALOS MOSHER NP [Primary Care Provider] - Follow Up with PCP/3 days LINCOLN ROGERS [ACTIVE STAFF] - Follow up/PCP as directed (Call in 2 days for appointment for reevaluation) Instructions: Angina (DC), Chest Pain (DC) Additional Instructions: Follow-up with primary care and cardiology for reevaluation. Return to ER for worsening symptoms like chest pain, palpitations, shortness of breath etc.
== END 2021-12-18 21:48 | disposition home or self-care (01) ==
LOC: ED 18:05
DX: R07.89 Other chest pain (principal); R00.2 Palpitations; R42 Dizziness and giddiness; I10 Essential (primary) hypertension; E78.5 Hyperlipidemia, unspecified; E11.9 Type 2 diabetes mellitus without complications; Z79.01 Long term (current) use of anticoagulants; Z79.899 Other long term (current) drug therapy
CPT/HCPCS: 36000; 36415; 71045; 80053; 82947; 83880; 84484; 84703; 85025; 85379; 93005; 93041; 99284; A9270-GY